=== PATIENT | female | born 1985 | race Caucasian/White ===

== ENCOUNTER 2019-05-31 18:51 | Emergency (ER) | payer SELFPAY ==
[2019-05-31] MEDS ORDERED: KETOROLAC 30 MG/ML INJ ONE (19:27)
[2019-05-31 19:52] LABS: Hematocrit 33.9 % (36.0-45.0); Lymphocytes % 38.8 % (15.3-44.8); MPV 9.4 fL (7.6-11.3)
[2019-05-31 20:32] LABS: Potassium 3.7 mmol/L (3.5-5.1)
--- NOTE | 2019-05-31 20:45 | EDPHYS ---
Physician Documentation [facility] Name: Erlin Sewell Age: 34 yrs Sex: Female : 1985 Arrival Date: 05/31/2019 Time: 18:54 Bed 30 Private MD: ED Physician Claudio Scanlon HPI: 05/31 20:24 This 34 yrs old Female presents to ER via Ambulatory with complaints of Neck kb Swelling, Back Pain. 20:24 The patient or guardian complains of swelling. The symptoms are located diffusely. kb Onset: The symptoms/episode began/occurred 1 month(s) ago. Context: The problem was sustained at home, The neck injury/problem resulted from from unknown cause. Associated signs and symptoms: The patient has no apparent associated signs or symptoms. The pain does not radiate. Modifying factors: The symptoms are alleviated by nothing. the symptoms are aggravated by nothing. Severity of symptoms: At their worst the symptoms were moderate, in the emergency department the symptoms are unchanged. The patient has experienced similar episodes in the past, a few times, today's symptoms are similar, to when the patient was apparently diagnosed with hypothyroidism. The patient has not recently seen a physician. Pt reports neck swelling for a month. STates she has been off of her thyroid medication since November and believes that is the cause of the swelling because it has happened before. Also reports mid back pain that is worse when standing that is chronic. No vertebral tenderness noted. Pt reports she has had neuropathy before that felt the same way. 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 - Social history:: Smoking status: Patient/guardian denies using tobacco. - Ebola Screening: : No symptoms or risks identified at this time. ROS: 20:22 Constitutional: Negative for fever, chills, and weight loss, ENT: Negative for injury, kb pain, and discharge, Cardiovascular: Negative for chest pain, palpitations, and edema, Respiratory: Negative for shortness of breath, cough, wheezing, and pleuritic chest pain, Abdomen/GI: Negative for abdominal pain, nausea, vomiting, diarrhea, and constipation, MS/Extremity: Negative for injury and deformity, Skin: Negative for injury, rash, and discoloration, Neuro: Negative for headache, weakness, numbness, tingling, and seizure. 20:22 Neck: Positive for swelling. 20:22 Back: Positive for pain at rest, pain with movement, of the left mid back and right mid back. Exam: 20:23 Constitutional: This is a well developed, well nourished patient who is awake, alert, kb and in no acute distress. Head/Face: Normocephalic, atraumatic. Eyes: Pupils equal round and reactive to light, extra-ocular motions intact. Lids and lashes normal. Conjunctiva and sclera are non-icteric and not injected. Cornea within normal limits. Periorbital areas with no swelling, redness, or edema. ENT: Nares patent. No nasal discharge, no septal abnormalities noted. Tympanic membranes are normal and external auditory canals are clear. Oropharynx with no redness, swelling, or masses, exudates, or evidence of obstruction, uvula midline. Mucous membranes moist. Chest/axilla: Normal chest wall appearance and motion. Nontender with no deformity. No lesions are appreciated. Cardiovascular: Regular rate and rhythm with a normal S1 and S2. No gallops, murmurs, or rubs. Normal PMI, no JVD. No pulse deficits. Respiratory: Lungs have equal breath sounds bilaterally, clear to auscultation and percussion. No rales, rhonchi or wheezes noted. No increased work of breathing, no retractions or nasal flaring. Abdomen/GI: Soft, non-tender, with normal bowel sounds. No distension or tympany. No guarding or rebound. No evidence of tenderness throughout. Back: No spinal tenderness. No costovertebral tenderness. Full range of motion. Skin: Warm, dry with normal turgor. Normal color with no rashes, no lesions, and no evidence of cellulitis. MS/ Extremity: Pulses equal, no cyanosis. Neurovascular intact. Full, normal range of motion. Neuro: Awake and alert, GCS 15, oriented to person, place, time, and situation. Cranial nerves II-XII grossly intact. Motor strength 5/5 in all extremities. Sensory grossly intact. Cerebellar exam normal. Normal gait. 20:23 Neck: External neck: swelling, that is moderate, of the neck, Thyroid: appears normal, goiter, Trachea: is midline with no obvious abnormalities, ROM/movement: is normal. Vital Signs: 18:58 BP 140 / 109; Pulse 93; Resp 16; Temp 97.8; Pulse Ox 100% on R/A; Weight 95.25 kg; hb Height 5 ft. 7 in. (170.18 cm); Pain 1/10; 20:10 Pain 0/10; rv 20:11 BP 119 / 83; Pulse 74; Resp 15; Pulse Ox 96% on R/A; rv 20:58 BP 128 / 88; Pulse 82; Resp 17 S; Pulse Ox 99% on R/A; ca1 18:58 Body Mass Index 32.89 (95.25 kg, 170.18 cm) hb MDM: 19:02 Patient medically screened. kb 20:21 Data reviewed: vital signs, nurses notes. Data interpreted: Pulse oximetry: on room air kb is 96 %. Interpretation: normal. 20:41 ED course: Discussed with ERP. Will start low dose of levothyroxine and educate pt on kb importance of follow up for this chronic condition. Pt alert and oriented. No resp distress. Educated to return for any concerns or worsening symptoms. 20:43 Counseling: I had a detailed discussion with the patient and/or guardian regarding: the kb historical points, exam findings, and any diagnostic results supporting the discharge/admit diagnosis, lab results, the need for outpatient follow up, a family practitioner, to return to the emergency department if symptoms worsen or persist or if there are any questions or concerns that arise at home. 05/31 19:21 Order name: CBC with Diff; Complete Time: 19:55 kb 05/31 19:21 Order name: Basic Metabolic Panel; Complete Time: 20:48 kb 05/31 19:21 Order name: IV Start; Complete Time: 19:24 kb 05/31 19:21 Order name: TSH; Complete Time: 20:48 kb 05/31 20:36 Order name: T4 Free; Complete Time: 20:48 EDMS Administered Medications: 19:32 Drug: TORadol - Ketorolac 15 mg Route: IVP; Site: right forearm; rv 20:10 Follow up: Pain 0/10 Adult; Response: No adverse reaction; Marked relief of symptoms; rv Pain is decreased Disposition: 06/01 08:56 Co-signature as Attending Physician, Claudio Scanlon MD I agree with the assessment and kdr plan of care. Disposition: 05/31/19 20:45 Discharged to Home. Impression: Hypothyroidism, unspecified. - Condition is Stable. - Discharge Instructions: Hypothyroidism. - Prescriptions for Levothyroxine 50 mcg Oral Tablet - take 1 tablet by ORAL route once daily take 30 minutes before breakfast; 20 tablet. - Medication Reconciliation Form, Thank You Letter, Antibiotic Education, Prescription Opioid Use form. - Follow up: Emergency Department; When: As needed; Reason: Worsening of condition. Follow up: Private Physician; When: 2 - 3 days; Reason: Recheck today's complaints, Continuance of care, Re-evaluation by your physician. Signatures: Dispatcher [employer] EDMS Clare Lynne, FLOOR COVERING PRINTER ASSISTANT-C FLOOR COVERING PRINTER ASSISTANT-CkClaudio Bedoya MD MD [facility] Alyce Musa RN RN Ted Muhammad RN RN rv Acob, GEORGE Mixon RN ca1 Corrections: (The following items were deleted from the chart) 05/31 20:41 20:23 Neck: External neck: swelling, that is moderate, of the neck, Thyroid: appears kb normal, Trachea: is midline with no obvious abnormalities, ROM/movement: is normal, kb 21:05 20:45 05/31/2019 20:45 Discharged to Home. Impression: Hypothyroidism, unspecified. ca1 Condition is Stable. Forms are Medication Reconciliation Form, Thank You Letter, Antibiotic Education, Prescription Opioid Use. Follow up: Emergency Department; When: As needed; Reason: Worsening of condition. Follow up: Private Physician; When: 2 - 3 days; Reason: Recheck today's complaints, Continuance of care, Re-evaluation by your physician. kb
--- NOTE | 2019-05-31 20:45 | ER ---
Nurse's Notes [facility] Name: Erlin Sewell Age: 34 yrs Sex: Female : 1985 Arrival Date: 05/31/2019 Time: 18:54 Bed 30 Private MD: Diagnosis: Hypothyroidism, unspecified Presentation: 05/31 18:54 Presenting complaint: Neck swelling x 2 weeks, worse over last 2 days. Transition of hb care: patient was not received from another setting of care. Onset of symptoms is unknown. Risk Assessment: Do you want to hurt yourself or someone else? Patient reports no desire to harm self or others. Initial Sepsis Screen: Does the patient meet any 2 criteria? No. Patient's initial sepsis screen is negative. Does the patient have a suspected source of infection? No. Patient's initial sepsis screen is negative. Care prior to arrival: None. 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 - Social history:: Smoking status: Patient/guardian denies using tobacco. - Ebola Screening: : No symptoms or risks identified at this time. Screenin:48 Abuse screen: Denies threats or abuse. Denies injuries from another. Nutritional rv screening: No deficits noted. Tuberculosis screening: No symptoms or risk factors identified. Fall Risk None identified. Assessment: 19:48 General: Appears in no apparent distress. comfortable, Behavior is calm, cooperative. rv Pain: Complains of pain in back. Neuro: Level of Consciousness is awake, alert, obeys commands, Oriented to person, place, time, situation. Cardiovascular: Patient's skin is warm and dry. Respiratory: Airway is patent. GI: No signs and/or symptoms were reported involving the gastrointestinal system. : No signs and/or symptoms were reported regarding the genitourinary system. EENT: No signs and/or symptoms were reported regarding the EENT system. Derm: Skin is intact. Musculoskeletal: Reports pain in back. 20:12 Reassessment: Patient appears in no apparent distress at this time. Patient is alert, rv oriented x 3, equal unlabored respirations, skin warm/dry/pink. patient denies any pain after dose of pain medicine. sitting comfortably on bed. 20:58 Reassessment: Patient appears in no apparent distress at this time. Patient is alert, ca1 oriented x 3, equal unlabored respirations, skin warm/dry/pink. Vital Signs: 18:58 BP 140 / 109; Pulse 93; Resp 16; Temp 97.8; Pulse Ox 100% on R/A; Weight 95.25 kg; hb Height 5 ft. 7 in. (170.18 cm); Pain 1/10; 20:10 Pain 0/10; rv 20:11 BP 119 / 83; Pulse 74; Resp 15; Pulse Ox 96% on R/A; rv 20:58 BP 128 / 88; Pulse 82; Resp 17 S; Pulse Ox 99% on R/A; ca1 18:58 Body Mass Index 32.89 (95.25 kg, 170.18 cm) hb ED Course: 18:54 Patient arrived in ED. mr 18:55 Triage completed. hb 18:55 Arm band placed on. hb 18:57 Clare Lynne FNP-C is [facility]. kb 18:57 Claudio Scanlon MD is Attending Physician. kb 19:00 Ted Muhammad, GEORGE is Primary Nurse. rv 19:32 Initial lab(s) drawn, by nh, sent to lab. Inserted saline lock: 22 gauge in right rv forearm, using aseptic technique. Blood collected. 19:49 Patient has correct armband on for positive identification. Placed in gown. Bed in low rv position. Call light in reach. Side rails up X 1. Adult w/ patient. Pulse ox on. NIBP on. 20:12 No provider procedures requiring assistance completed. rv 21:04 IV discontinued, intact, bleeding controlled, No redness/swelling at site. Pressure ca1 dressing applied. Administered Medications: 19:32 Drug: TORadol - Ketorolac 15 mg Route: IVP; Site: right forearm; rv 20:10 Follow up: Pain 0/10 Adult; Response: No adverse reaction; Marked relief of symptoms; rv Pain is decreased Outcome: 20:45 Discharge ordered by . kb 21:04 Discharged to home ambulatory, with significant other. ca1 21:04 Condition: stable 21:04 Discharge instructions given to patient, Instructed on discharge instructions, follow up and referral plans. medication usage, Demonstrated understanding of instructions, follow-up care, medications, Prescriptions given X 1. 21:05 Patient left the ED. ca1 Signatures: Clare Lynne, MAT TESTER-C MAT TESTER-Shyanne Bruce mr Alyce Musa RN RN Ted Muhammad RN RN Apurva Gamboa RN RN ca1
[2019-06-01 02:24] VITALS: TEMP 97.8
[2019-06-01 02:27] VITALS: BP 128/88; O2SAT 99
== END 2019-05-31 21:05 | disposition home or self-care (01) ==
LOC: ER 18:51
DX: E03.9 Hypothyroidism, unspecified (principal); Z88.8 Allergy status to other drugs, medicaments and biological substances
CPT/HCPCS: 36415; 80048; 84439; 84443; 85025; 96374; 99284